=== PATIENT | female | born 1945 | race Caucasian/White ===

== ENCOUNTER → 2018-06-06 13:35 | Outpatient (CLI) | payer MEDICARE, OTHER, SELFPAY | PROVIDERS: Family Provider Physician Assistant; PCP Physician Assistant; Visit Provider Nurse Practitioner Acute Care | DX: G47.33 Obstructive sleep apnea (adult) (pediatric) (principal) | CPT/HCPCS: 98960; G0463 ==

== ENCOUNTER → 2018-07-04 10:05 | Outpatient (CLI) | payer MEDICARE, OTHER, SELFPAY ==
--- NOTE | 2018-07-04 10:17 | BI_ITS ---
MAMMOGRAPHY - BILATERAL SCREENING REASON FOR EXAM: Female, 73 years old. Routine annual screening examination. PERTINENT HISTORY: NO FAM HX RT EXC BX 40+ YRS AGO LT LATERAL PAIN 2 MONTHS AGO BUT GONE NOW TECHNIQUE: Digital bilateral breast kishore (3D mammographic acquisition) in the CC and MLO projections. 2-D mediolateral oblique (MLO) and craniocaudad (CC) views of both breasts were obtained. CAD: Full Field Digital Mammography with Computer Added Detection was performed. COMPARISON: Jul 02 2017 3:19pm . Jun 23 2016 1:11pm FINDINGS: Breast Composition: The breasts are heterogeneously dense, which may obscure small masses. There are no dominant masses or suspicious calcifications. No other significant abnormalities are identified. BI/SCREENING MAMM (CAD), BILAT IMPRESSION: Stable bilateral screening mammogram. Yearly follow-up mammogram recommended. (A) ASSESSMENT CATEGORY: BIRADS Category 2: Benign. A letter regarding these results will be sent to the patient by the facility within 30 days. Approximately 10% of breast cancers are not detected by mammography. A normal mammogram should not delay biopsy of a clinically suspicious abnormality. [id number] Electronically Signed: Judie German MD at 16:41 EDT Tel , Service support ,
== END ==
PROVIDERS: Family Provider Physician Assistant; PCP Physician Assistant; Visit Provider Physician Assistant
DX: Z12.31 Encounter for screening mammogram for malignant neoplasm of breast (principal)
CPT/HCPCS: 77063; 77067

== ENCOUNTER → 2019-03-17 14:28 | Outpatient (CLI) | payer MEDICARE, OTHER, SELFPAY ==
[2019-03-11 14:09] VITALS: BMI 26.4
--- NOTE | 2019-03-17 14:31 | US_ITS ---
STUDY: ULTRASOUND TRANSVAGINAL CLINICAL: Female, 73 years old. Thickened endometrium on CT TECHNIQUE: Transvaginal COMPARISON: None. FINDINGS: The uterus is slightly atrophic and measures 5.9 x 4.0 x 2.7 cm with an endometrial stripe thickness of 6 to 7 mm. This is slightly prominent for a postmenopausal patient. The ovaries are not visualized. US/Pelvic (Non ) IMPRESSION: A slightly atrophic uterus with endometrial stripe thickness of 6 to 7 mm. The upper limits of normal for a postmenopausal patient is 5 mm Electronically Signed: Declan Cr MD at 7:15 EDT Tel , Service support ,
--- NOTE | 2019-03-17 14:31 | US_ITS ---
STUDY: ULTRASOUND TRANSVAGINAL CLINICAL: Female, 73 years old. Thickened endometrium on CT TECHNIQUE: Transvaginal COMPARISON: None. FINDINGS: The uterus is slightly atrophic and measures 5.9 x 4.0 x 2.7 cm with an endometrial stripe thickness of 6 to 7 mm. This is slightly prominent for a postmenopausal patient. The ovaries are not visualized. US/Transvaginal Non- IMPRESSION: A slightly atrophic uterus with endometrial stripe thickness of 6 to 7 mm. The upper limits of normal for a postmenopausal patient is 5 mm Electronically Signed: Declan Cr MD at 7:15 EDT Tel , Service support ,
== END ==
PROVIDERS: Family Provider Physician Assistant; PCP Physician Assistant; Referring Provider Nurse Practitioner Women's Health; Visit Provider Nurse Practitioner Women's Health
DX: R93.89 Abnormal findings on diagnostic imaging of other specified body structures (principal)
CPT/HCPCS: 76830; 76856

== ENCOUNTER → 2019-03-28 16:41 | Outpatient (CLI) | payer MEDICARE, OTHER, SELFPAY ==
--- NOTE | 2019-03-28 | EMB_PTH ---
PATIENT: [facility]YAN [facility]ILIP [facility] U[facility][id number] AGE/SX: 80/F ROOM: RE03/28/[address]: JESSICA Ann : 1945 BED: DIS: SPEC #: [id number] RECD: 03/28/19 16:34 STATUS: CLAY MARAH #: [id number] ELSIE: 03/28/19 00:[address]: Chula Guerrero NP DEPT: SURGICAL PATHOLOGY RECD BY: Sonny Patel ENTERED: 03/31/19 10:54 SP TYPE: ENDOM BX/C BOZENA DR: NATHALIE Weathers Tissues: Endometrium, NOS Procedures: Surgery Specimen Level IV HEADER OPERATION: Endometrial biopsy PRE-OP DIAGNOSIS: Thickened endometrium TISSUE SUBMITTED: Endometrial biopsy MICROSCOPIC DIAGNOSIS Endometrial biopsy: Strip of benign endometrial epithelium consistent with atrophic endometrium. A polypoid fragment of tissue consistent with mixed benign endometrial and endocervical polyp. Fragments of mucoid tissue. SJ:deborah 04/01/19 COMMENT Correlation with clinical findings and appropriate follow up are necessary. MICROSCOPIC DESCRIPTION Slides are reviewed. GROSS DESCRIPTION Received is one container labeled with the patient's name and not further designated. The specimen consists of multiple irregular fragments of antoine-white soft tissue that in aggregate measure 1.5 x 0.5 x 0.1 cm. The specimen is totally submitted in one cassette. / ALL:deborah 03/31/19 TC:5 CPT: 78349
[2019-03-28 13:42] VITALS: BMI 26.0
== END ==
PROVIDERS: Family Provider Physician Assistant; PCP Physician Assistant; Referring Provider Nurse Practitioner Women's Health; Visit Provider Nurse Practitioner Women's Health
DX: R93.89 Abnormal findings on diagnostic imaging of other specified body structures (principal); N84.1 Polyp of cervix uteri
CPT/HCPCS: 88305

== ENCOUNTER → 2019-05-19 15:19 | Outpatient (CLI) | payer MEDICARE, OTHER, SELFPAY ==
[2019-05-19 13:56] VITALS: BMI 26.0
== END ==
PROVIDERS: Family Provider Physician Assistant; PCP Physician Assistant; Referring Provider Obstetrics & Gynecology; Visit Provider Obstetrics & Gynecology
DX: R30.0 Dysuria (principal)
CPT/HCPCS: 87086

== ENCOUNTER 2019-05-29 10:02 | Day surgery (SDC) | payer MEDICARE, OTHER, SELFPAY ==
[2019-03-28 13:42] VITALS: BMI 26.0
[2019-05-19 13:56] VITALS: BMI 26.0
--- NOTE | 2019-05-28 22:10 | HP.PCM_ITS ---
- Problem List (1) Endometrial polyp Status: Acute Comment: d and c hysteroscopy (2) Thickened endometrium Status: Acute (3) Coccygodynia Status: Chronic (4) GERD (gastroesophageal reflux disease) Status: Chronic (5) Hepatic steatosis Status: Chronic (6) Hyperlipidemia Status: Chronic (7) IBS (irritable bowel syndrome) Status: Chronic (8) MILLICENT (obstructive sleep apnea) Status: Chronic (9) Osteoporosis Status: Chronic (10) Snoring Status: Chronic (11) History of carpal tunnel surgery Status: Resolved (12) History of cataract surgery Status: Resolved (13) History of cholecystectomy Status: Resolved History and Physical Date of Admission: 05/29/19 Intake Vital Signs 05/19/19 Body Mass Index (BMI) 26.0 05/19/19 Height 5 ft 3 in 05/19/19 Weight: 150 lb 05/19/19 Body Mass Index (BMI) 26.5 05/19/19 Blood Pressure 160/82 H Intake Visit Reasons: preop D&C Chief Complaint: pre op D&C 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 Is patient in pain?: No Allergies atorvastatin [From Lipitor] Allergy (Severe, Verified 05/19/19 13:55) Unknown bacitracin [From Neosporin ([id number])] Allergy (Severe, Verified 05/19/19 13:55) Unknown neomycin [From Neosporin (qwp-pet-xxntz)] Allergy (Severe, Verified 05/19/19 13:55) Unknown polymyxin B [From Neosporin (xxr-jzb-huwmq)] Allergy (Severe, Verified 05/19/19 13:55) Unknown clobetasol Allergy (Intermediate, Verified 05/19/19 13:55) Unknown metoclopramide Allergy (Intermediate, Verified 05/19/19 13:55) Unknown mupirocin Allergy (Intermediate, Verified 05/19/19 13:55) Unknown nystatin Allergy (Intermediate, Verified 05/19/19 13:55) unknown Sulfa (Sulfonamide Antibiotics) Allergy (Intermediate, Verified 05/19/19 13:55) Unknown tramadol Allergy (Intermediate, Verified 05/19/19 13:55) Unknown codine Allergy (Intermediate, Uncoded 05/19/19 13:55) Unknown Medications L.acidophilus-B.lactis-B.longum 460 mg (7.5-6-1.5 bill. cell) capsule cap PO 05/02/18 [History Confirmed 05/19/19] calcium carbonate 600 mg(1,500 mg)-vitamin D3 800 unit chewable tablet 1 tab PO QDAY tab 05/02/18 [History Confirmed 05/19/19] fluticasone propionate 50 mcg/actuation nasal spray,suspension 2 spray INTRANASAL QDAY PRN 05/02/18 [History Confirmed 05/19/19] lorazepam 0.5 mg tablet 0.5 mg PO Q6H PRN tab 05/02/18 [History Confirmed 05/19/19] misoprostol 200 mcg tablet 200 mcg PO ONCE tab 05/02/18 [History Confirmed 05/19/19] peg 400-propylene glycol 0.4 %-0.3 % eye drops 2 drp OPHTHALMIC BID ml 05/02/18 [History Confirmed 05/19/19] trazodone 50 mg tablet 75 mg PO QDAY tab 05/02/18 [History Confirmed 05/19/19] cholecalciferol (vitamin D3) 1,000 unit capsule 2,000 unit PO DAILY cap 07/04/18 [History Confirmed 05/19/19] diclofenac potassium 50 mg tablet 75 mg PO QDAY tab 07/04/18 [History Confirmed 05/19/19] hemnmqus-dka-jwtsh acid 0.4 mg-lycopene 300 mcg-lutein 250 mcg tablet 1 tab PO DAILY 07/04/18 [History Confirmed 05/19/19] omega-3 fatty acids 1,250 mg capsule 1,250 mg PO DAILY 07/04/18 [History Confirmed 05/19/19] omeprazole 40 mg capsule,delayed release 20 mg PO QDAY cap 07/04/18 [History Confirmed 05/19/19] red yeast rice 600 mg capsule 2,400 mg PO QDAY cap 07/04/18 [History Confirmed 05/19/19] sertraline 25 mg tablet 25 mg PO DAILY 07/04/18 [History Confirmed 05/19/19] vitamin E 200 unit capsule 600 unit PO QDAY cap 07/04/18 [History Confirmed 05/19/19] ascorbate calcium (vitamin C) 500 mg tablet 500 mg PO DAILY 03/11/19 [History Confirmed 05/19/19] potassium gluconate 595 mg (99 mg) tablet 595 mg PO DAILY tab 03/11/19 [History Confirmed 05/19/19] Is last menstrual period known: No Post menopausal: Yes Patient : No : No PFSH Medical History GERD (gastroesophageal reflux disease) (Chronic) Snoring (Chronic) Coccygodynia (Chronic) Hepatic steatosis (Chronic) Osteoporosis (Chronic) IBS (irritable bowel syndrome) (Chronic) Hyperlipidemia (Chronic) MILLICENT (obstructive sleep apnea) (Chronic) Surgical History History of cataract surgery (Resolved) History of carpal tunnel surgery (Resolved) History of cholecystectomy (Resolved) Social History (Updated 05/19/19 @ 14:45 by Maria Luisa Erickson MD) Smoking Status: Never smoker second hand exposure: No alcohol intake: never substance use type: does not use caffeine: Yes what type of physical activity do you participate in: other details: decompression therapy and PT frequency: daily seatbelt use: always do you feel safe at home: Yes additional social history: - [employer] retired Patient is retired HPI preop D&C: Details: RYAN PHILIP is a 74 year old who presents for preop evaluation. she has some dysuria and lower pelvic discomfort. she has a thickened endometrium and polyp was seen on biopsy. Female Reproductive History Menopausal Symptoms: No night sweats Pregancy History 3 Elective abortions Hx Para 2 Spontaneous abortions Hx # Term Pregnancies Ectopic pregnancies Hx # Pregnancies Multiple births 1 # of living children 2 Past Pregnancies Del. Date Name GA/Weeks Outcome Route Bth Weight Infant Gen Labor Lgth Anesthesia Del [facility] Provider FOB Unknown José Antonio and Jam-1968 Unknown Sushil-1969 Unknown Paco-1972 Delivery Date: On 03/11/19 @ 14:09 Jen Rapp Premature- Delivery Date: No notes to display Delivery Date: No notes to display ROS Const Constitutional: Denies fatigue, night sweats, weight gain or weight loss ENT ENT: Reports system reviewed and no additional complaints, except as docu Cardio Card: Denies chest pain Resp Resp: Denies cough or dyspnea GI GI: Reports as per HPI; denies abdominal pain, constipation, nausea or vomiting : Reports urinary frequency and urinary incontinence Musc Musc: Denies joint pain, back pain or muscle weakness Skin Skin/Breast: Denies hair loss, change in hair, dry skin, breast lump, breast pain or breast skin changes Neuro Neuro: Reports system reviewed and no additional complaints, except as docu Psych Psych: Reports system reviewed and no additional complaints, except as docu Endo Endo: Denies cold intolerance, excessive sweating, heat intolerance or increased thirst Aston/Lymph Hematologic/Lymphatic: Denies easy bleeding, Denies easy bruising, Denies enlarged lymph nodes Exam Const General: cooperative, healthy appearing, comfortable, no acute distress, well developed Orientation: alert [facility] Head: normal to inspection, normocephalic Ears: hearing grossly normal bilaterally, external ears normal Nose: external nose normal, nares normal Face and sinus: normal facial exam Neck Neck: normal visual inspection, no lymphadenopathy Thyroid: thyroid normal Chest Chest palpation & inspection: normal inspection of the chest Resp Effort & Inspection: normal respiratory effort Auscultation: clear to auscultation bilaterally Cardio Rate: regular rate Rhythm: regular rhythm Heart Sounds: S1 normal, S2 normal GI Inspection: normal to inspection, non-distended Palpation: soft, no hepatosplenomegaly General: bladder normal to palpation External Female Exam: normal external appearance, normal appearance of the urethra Urethra: normal appearance of the urethra, normal palpation, no discharge Speculum Exam - Vagina: normal appearance of the vagina, normal vaginal discharge Speculum Exam - Cervix: normal appearance of the cervix, nontender Bimanual Exam- Vagina & Uterus: normal bimanual exam, uterine size normal, bladder normal to palpation, uterine shape normal, No cervical tenderness, uterine mobility normal, uterine consistency normal, normal cervical palpation, uterus non-tender Bimanual Exam- Adnexa, other: normal adnexae, adnexae mobile, no adnexal masses, pelvic support normal Pelvic Support: normal Musc Other: gross motor intact no deficits, full bilateral strength Skin General: no rashes or lesions noted Neuro General: alert, awake, moves all extremities, no focal motor deficits Motor: muscle tone normal throughout Extrem General: normal to inspection, no pedal edema Psych Appearance: grossly normal Mental Status: mental status grossly normal Affect: normal affect Speech and Movement: speech and movement normal Assessment & Plan Problems 1. Thickened endometrium R93.89 2. Endometrial polyp N84.0 d and c hysteroscopy Plan discussed surgical risks including risks of anesthesia, infection, bleeding, injury to bowel, bladder or blood vessels, and patient wishes to proceed with surgery. Coding Level of Care Code No Charge Diagnoses Thickened endometrium R93.89 Endometrial polyp N84.0
[2019-05-29] VITALS (7 sets, daily range): BP systolic 120–150; BP diastolic 69–89; PULSE 68–80; RESP 16; TEMP 36.2–36.6; O2SAT 95–98; BMI 26.6
[2019-05-29 10:33] LABS: Hematocrit 42.6 % (37-47); Hemoglobin 13.9 g/dL (12.0-15.0); Mean Corp Hgb Conc 32.6 g/dL (32-36); Mean Corpuscular Hgb 31.4 pg (27.0-32.0); Mean Corpuscular Volume 96.4 fL (81-99); Mean Platelet Vol. 10.9 fl (6.2-12.0); Platelet Count 257 K/mm3 (150-450); RBC Distribution Width CV 12.5 % (11.6-14.6); RBC Distribution Width SD 44.4 fl (35.1-43.9); Red Blood Count 4.42 M/mm3 (4.2-5.4); White Blood Count 7.3 K/mm3 (4.4-11.0)
[2019-05-29 10:46] LABS: Anion Gap 5 (5-15); BUN 22 mg/dL (7-18); BUN/Creat Ratio 26.1 RATIO (10-20); Calcium,Total 8.9 mg/dL (8.5-10.1); Chloride 106 mmol/L (98-107); Creatinine, Serum 0.84 mg/dL (0.55-1.02); EST Glomerular Filtration Rate 70 mL/min (>60); Est Glom Filt Rate - Afr Amer 85 mL/min (>60); Glucose 89 mg/dL (74-106); Potassium 3.9 mmol/L (3.5-5.1); Sodium Level 141 mmol/L (136-145)
--- NOTE | 2019-05-29 12:00 | EMB_PTH ---
PATIENT: RYAN PHILIP LOC: [facility] [place] U#:[id number] AGE/SX: 74/F ROOM: RE05/29/[address]: Dr. Maria Luisa Erickson MD : 1945 BED: DIS: 05/29/2019 SPEC #: [id number] RECD: 05/29/19 12:00 STATUS: CLAY MARAH #: [id number] ELSIE: 05/29/19 12:[address]: Maria Luisa Erickson DEPT: SURGICAL PATHOLOGY RECD BY: Fernando Gandhi ENTERED: 05/30/19 10:05 SP TYPE: ENDOM BX/C OT DR: NATHALIE Weathers Tissues: Endometrium, NOS Procedures: Surgery Specimen Level IV HEADER OPERATION: Hysteroscopy, D & C PRE-OP DIAGNOSIS: Thickened endometrium, endometrial polyp TISSUE SUBMITTED: Endometrial curettings MICROSCOPIC DIAGNOSIS Endometrial curettings: Strips of benign endometrial epithelium and superficial fragments of benign endometrial tissue, consistent with atrophic endometrium. Fragments of benign ectocervical epithelium. See comment. ALL:deborah 06/03/19 COMMENT Please make reference to previous specimen ([id number]) endometrial biopsy with diagnosis of strips of benign endometrial epithelium, consistent with atrophic endometrium and a polypoid fragment of tissue consistent with mixed benign endometrial and endocervical polyp. MICROSCOPIC DESCRIPTION Slides are reviewed. GROSS DESCRIPTION Received in fixative is one container labeled with the patient's name and designated endometrial curettings. The specimen consists of minute fragments of tissue totally submitted for cell block preparation. / ALL:deborah 05/30/19 TC:4 CPT: [id number]
--- NOTE | 2019-05-29 15:31 | PCM.OPRPT ---
Problem List (1) Endometrial polyp Status: Acute Comment: d and c hysteroscopy (2) Thickened endometrium Status: Acute (3) Coccygodynia Status: Chronic (4) GERD (gastroesophageal reflux disease) Status: Chronic (5) Hepatic steatosis Status: Chronic (6) Hyperlipidemia Status: Chronic (7) IBS (irritable bowel syndrome) Status: Chronic (8) MILLICENT (obstructive sleep apnea) Status: Chronic (9) Osteoporosis Status: Chronic (10) Snoring Status: Chronic (11) History of carpal tunnel surgery Status: Resolved (12) History of cataract surgery Status: Resolved (13) History of cholecystectomy Status: Resolved Report of Operation Date of Procedure: 05/29/19 Pre-Operative Diagnosis: Postmenopausal bleeding Post-Operative Diagnosis: Same plus endometrial atrophy Surgery/Procedure Performed:: D&C hysteroscopy endometrial atrophy Description of Surgical Findings:: Atrophic lining Type of Anesthesia:: MAC Special Medications: None Specimen's removed: Endometrial curettings Drains: None Estimated Blood Loss (mL): 10 cc Fluids Replaced: Crystalloid Description of Procedure: Patient was prepped and draped in a normal sterile fashion under MAC anesthesia. A weighted speculum was placed in the vagina and the anterior lip of the cervix was grasped with a single-tooth tenaculum. A paracervical block was placed with 1% lidocaine. Cervix was progressively dilated to allow passage of a 5 mm hysteroscope. The lining was fully visualized and noted to have an atrophic lining with no gross abnormalities. Uterine sounded to 6 cm. Curettage was performed and minimal amount of tissue was removed due to significant atrophy, sent to pathology. All instruments were removed from the vagina and excellent hemostasis was noted. Patient was awoken and taken to recovery in stable condition. Grafts/Implants Used: none - Complications none
--- NOTE | 2019-05-29 15:33 | DCINST_ITS ---
Discharge Diet: No Restrictions Discharge Activity: Return to Normal Activity, May Shower, May Take a Tub Bath Allergies/Adverse Reactions: Allergies atorvastatin [From Lipitor] Allergy (Severe, Verified 05/22/19 10:56) Unknown bacitracin [From Neosporin (ukd-ato-fnduy)] Allergy (Severe, Verified 05/22/19 10:56) Unknown neomycin [From Neosporin (wag-fcn-nuzyu)] Allergy (Severe, Verified 05/22/19 10:56) Unknown polymyxin B [From Neosporin (svf-shg-nlrlm)] Allergy (Severe, Verified 05/22/19 10:56) Unknown clobetasol Allergy (Intermediate, Verified 05/22/19 10:56) Unknown metoclopramide Allergy (Intermediate, Verified 05/22/19 10:56) Unknown mupirocin Allergy (Intermediate, Verified 05/22/19 10:56) Unknown nystatin Allergy (Intermediate, Verified 05/22/19 10:56) unknown Sulfa (Sulfonamide Antibiotics) Allergy (Intermediate, Verified 05/22/19 10:56) Unknown tramadol Allergy (Intermediate, Verified 05/22/19 10:56) Unknown celecoxib [From Celebrex] Allergy (Verified 05/22/19 10:58) Unknown codeine Allergy (Verified 05/22/19 10:58) Unknown amoxicillin Adverse Reaction (Verified 05/22/19 10:58) Diarrhea Medications to take at Discharge L.acidophilus-B.lactis-B.longum 460 mg (7.5-6-1.5 bill. cell) capsule 1 cap PO DAILY 05/02/18 calcium carbonate 600 mg(1,500 mg)-vitamin D3 800 unit chewable tablet 1 tab PO QDAY tab 05/02/18 fluticasone propionate 50 mcg/actuation nasal spray,suspension 2 spray INTRANASAL BID 05/02/18 lorazepam 0.5 mg tablet 0.5 mg PO Q6H PRN tab 05/02/18 misoprostol 200 mcg tablet 200 mcg PO ONCE tab 05/02/18 peg 400-propylene glycol 0.4 %-0.3 % eye drops 2 drp OPHTHALMIC BID ml 05/02/18 trazodone 50 mg tablet 75 mg PO QDAY tab 05/02/18 cholecalciferol (vitamin D3) 1,000 unit capsule 2,000 unit PO DAILY cap 07/04/18 diclofenac potassium 50 mg tablet 75 mg PO QDAY tab 07/04/18 yrdruydb-rjx-dmsks acid 0.4 mg-lycopene 300 mcg-lutein 250 mcg tablet 1 tab PO DAILY 07/04/18 omega-3 fatty acids 1,250 mg capsule 1,250 mg PO DAILY 07/04/18 omeprazole 40 mg capsule,delayed release 20 mg PO QDAY cap 07/04/18 red yeast rice 600 mg capsule 2,400 mg PO QDAY cap 07/04/18 sertraline 25 mg tablet 25 mg PO DAILY 07/04/18 vitamin E 200 unit capsule 600 unit PO QDAY cap 07/04/18 ascorbate calcium (vitamin C) 500 mg tablet 500 mg PO DAILY 03/11/19 potassium gluconate 595 mg (99 mg) tablet 595 mg PO DAILY tab 03/11/19 Primary Care Physician: Meri Pope PA [Primary Care Provider] - Test Results: Test results from this visit will be discussed in further detail at your follow- up appointment, if applicable. Please Follow Up With: Maria Luisa Erickson MD - [phone]
[2019-05-29] MEDS: Lactated Ringers 1,000 ML 125 ML IV (15:50)
== END 2019-05-29 17:15 | disposition home or self-care (01) ==
LOC: SDC 10:04 → AC 10:04
PROVIDERS: Family Provider Physician Assistant; PCP Physician Assistant; Referring Provider Obstetrics & Gynecology; Visit Provider Obstetrics & Gynecology
PROC: 0UB98ZZ Excision of Uterus, Via Natural or Artificial Opening Endoscopic (ICD-10-PCS; CPT 58558; principal; 2019-05-29 11:45)
DX: N95.0 Postmenopausal bleeding (principal); R93.89 Abnormal findings on diagnostic imaging of other specified body structures; E78.5 Hyperlipidemia, unspecified; G47.33 Obstructive sleep apnea (adult) (pediatric); K21.9 Gastro-esophageal reflux disease without esophagitis; K58.9 Irritable bowel syndrome, unspecified; M81.0 Age-related osteoporosis without current pathological fracture; N84.0 Polyp of corpus uteri; Z88.1 Allergy status to other antibiotic agents; Z88.2 Allergy status to sulfonamides; Z88.8 Allergy status to other drugs, medicaments and biological substances; Z90.49 Acquired absence of other specified parts of digestive tract; Z98.49 Cataract extraction status, unspecified eye; M53.3 Sacrococcygeal disorders, not elsewhere classified; K76.0 Fatty (change of) liver, not elsewhere classified
CPT/HCPCS: 58558; 36415; 80048; 85027; 86850; 86870; 86900; 86901; 86905; 88305; J7120; J2405

== ENCOUNTER → 2019-07-07 09:30 | Outpatient (CLI) | payer MEDICARE, OTHER, SELFPAY ==
[2019-05-29 10:42] VITALS: BMI 26.6
[2019-07-03 09:57] VITALS: BMI 26.1
--- NOTE | 2019-07-07 09:34 | BI_ITS ---
MAMMOGRAPHY - BILATERAL SCREENING 3-D TOMOSYNTHESIS REASON FOR EXAM: Female, 74 years old. Screening PERTINENT HISTORY: No significant family history. BILATERAL DIGITAL MAMMOGRAM WITH TOMOSYNTHESIS: Mediolateraloblique and craniocaudal views demonstrate no evidence of dominant parenchymal masses. No cluster of microcalcifications or architectural distortion is seen. No evidence of skin thickening is identified There has been no significant change since 07/04/2018. Breast Density: The breast tissue is heterogeneously dense, which may obscure small masses. CAD was used to assist in final assessment. IMPRESSION: NORMAL MAMMOGRAM BILATERALLY. FINAL ASSESSMENT: BIRAD 1 (NEGATIVE) YEARLY MAMMOGRAM RECOMMENDED Approximately 10% of breast cancers are not detected by mammography. A normal mammogram should not delay biopsy of a clinically suspicious abnormality. Electronically Signed: Jose Luis Guerrero, at 17:18 EDT Tel , Service support , BI/SCREEN MAMM (CAD) W/TAY GARCIA
== END ==
PROVIDERS: Family Provider Physician Assistant; PCP Physician Assistant; Referring Provider Physician Assistant; Visit Provider Physician Assistant
DX: Z12.31 Encounter for screening mammogram for malignant neoplasm of breast (principal)
CPT/HCPCS: 77063; 77067

== ENCOUNTER → 2020-07-08 12:25 | Outpatient (CLI) | payer MEDICARE, OTHER, SELFPAY ==
[2019-07-03 09:57] VITALS: BMI 26.1
--- NOTE | 2020-07-08 12:27 | BI_ITS ---
MAMMOGRAPHY - BILATERAL SCREENING REASON FOR EXAM: Female, 75 years old. Routine annual screening examination. PERTINENT HISTORY: NO FAM HX - RT EXC BX 40+ YRS AGO - TECHNIQUE: Digital bilateral breast tay (3D mammographic acquisition) in the CC and MLO projections. 2-D mediolateral oblique (MLO) and craniocaudad (CC) views of both breasts were obtained. CAD: Full Field Digital Mammography with Computer Added Detection was performed. COMPARISON: 07/07/2019 and 07/04/2018. FINDINGS: Breast Composition: There are scattered areas of fibroglandular density. There are no dominant masses or suspicious calcifications. No other significant abnormalities are identified. BI/SCREEN MAMM (CAD) W/TAY BILAT IMPRESSION: Stable bilateral screening mammogram. Yearly follow-up mammogram recommended. (A) ASSESSMENT CATEGORY: BIRADS Category 2: Benign. A letter regarding these results will be sent to the patient by the facility within 30 days. Approximately 10% of breast cancers are not detected by mammography. A normal mammogram should not delay biopsy of a clinically suspicious abnormality. [id number] Electronically Signed: Judie German, at 15:01 EDT Tel , Service support ,
== END ==
PROVIDERS: PCP Physician Assistant; Referring Provider Physician Assistant; Visit Provider Physician Assistant
DX: Z12.31 Encounter for screening mammogram for malignant neoplasm of breast (principal)
CPT/HCPCS: 77063; 77067

== ENCOUNTER → 2020-12-14 10:00 | Outpatient (CLI) | payer MEDICARE, OTHER, SELFPAY | PROVIDERS: PCP Physician Assistant; Referring Provider Otolaryngology Otolaryngology/Facial Plastic Surgery; Visit Provider Otolaryngology Otolaryngology/Facial Plastic Surgery | DX: J01.90 Acute sinusitis, unspecified (principal) | CPT/HCPCS: 87070; 87205 ==

== ENCOUNTER → 2021-02-03 12:29 | Outpatient (CLI) | payer MEDICARE, OTHER, SELFPAY ==
[2021-02-03 11:11] VITALS: BMI 25.3
[2021-02-03 13:32] LABS: Rheumatoid Factor < 10.0 IU/mL (<15)
[2021-02-04 20:18] LABS: ANTINUCLEAR ANTIBODIES DIRECT Negative (Negative)
[2021-02-06 03:06] LABS: Cytoplasmic Ab (C-ANCA) <1:20 titer (Neg:<1:20)
[2021-02-06 09:45] LABS: CCP IgG Antibodies 8 units (0-19); Perinuclear Ab (P-ANCA) <1:20 titer (Neg:<1:20)
== END ==
PROVIDERS: PCP Physician Assistant; Referring Provider Internal Medicine Critical Care Medicine; Visit Provider Internal Medicine Critical Care Medicine
DX: I27.20 Pulmonary hypertension, unspecified (principal)
CPT/HCPCS: 36415; 86038; 86200; 86225; 86235; 86256; 86431

== ENCOUNTER → 2021-02-08 08:53 | Outpatient (CLI) | payer MEDICARE, OTHER, SELFPAY ==
[2021-02-03 11:11] VITALS: BMI 25.3
--- NOTE | 2021-02-08 08:57 | NM_ITS ---
CLINICAL: 75-year-old female with reported history of pulmonary hypertension. VENTILATION-PERFUSION LUNG SCINTIGRAPHY COMPARISON: None available FINDINGS: The patient was administered 48.7 mCi 99m Tc DTPA aerosol. The aerosol ventilation study demonstrates heterogeneous ventilation identified in the right and left lung lujan. Central clumping is identified in the bilateral hemithorax. Following the intravenous administration of 5.2 mCi of 99m Tc MAA, the pulmonary perfusion study reveals nonuniform perfusion visualized in the right and left lung lujan correlating with the previously described ventilation pattern. A stripe sign is defined in the right midlower lateral lung. There are no moderate subsegmental or large segmental ventilation-perfusion mismatches identified. NM/Lung Scan Vent/Perf IMPRESSION: 1. VERY LOW PROBABILITY FOR PULMONARY EMBOLUS (<10%) 99m Tc DTPA aerosol ventilation / 99m Tc MAA pulmonary perfusion imaging examination, according to PIOPED II interpretive criteria with regard given to the presence of > 2 ventilation-perfusion matches and right lung perfusion stripe sign. (Sotsman et al, Radiology 246: 941, 2008 Sotsneelam et al, J Nucl Med 49: 1741, 2008). 2. Central clumping of the aerosol may be secondary to obstructive airway mechanics and or clinical tachypnea. Electronically Signed: Michael Jones DO at 22:15 EDT Tel , Service support ,
== END ==
PROVIDERS: PCP Physician Assistant; Referring Provider Internal Medicine Critical Care Medicine; Visit Provider Internal Medicine Critical Care Medicine
DX: I27.20 Pulmonary hypertension, unspecified (principal)
CPT/HCPCS: 78582; A9540; A9567

== ENCOUNTER → 2021-02-15 14:02 | Outpatient (CLI) | payer MEDICARE, OTHER, SELFPAY ==
[2021-02-03 11:11] VITALS: BMI 25.3
--- NOTE | 2021-02-15 14:00 | PET_ITS ---
EXAMINATION: FDG PET/CT INDICATIONS: A 75-year-old female with reported history of pulmonary nodularity. COMPARISON EXAMINATION: CT of the chest report dated 01/20/21 NON-INDEX LESION SIZE SUV INTERPRETATION Right thoracic perihilum 1.9 Quantitative criteria for viable neoplasm are not fulfilled TECHNIQUE: Following the intravenous administration of 16.58 mCi of F-18 deoxyglucose via the right antecubital fossa, multiplanar image acquisitions of the neck, chest, abdomen and pelvis to level of mid thigh, obtained at one hour post radiopharmaceutical administration contemporaneously interpreted with the current CT of the neck, chest, abdomen and pelvis to level of mid thigh, dated 02/15/[address] of the chest report dated 01/20/21 reveal: SERUM GLUCOSE LEVEL: 89 mg/dl. HEIGHT: 63 inches. WEIGHT: 146 lbs. FINDINGS: 1. There is no evidence of abnormal increased glucose metabolism within the context of the right basilar hemithorax pulmonary parenchyma-right lower lobe to correlate with densities defined on CT of the chest dated 02/15/21 in the right lower lateral and right lower posterior lung zones. 2. Mild increased FDG distribution is focally apparent in the in the right thoracic perihilum generating a calculated maximal standard uptake value of 1.9. 3. Normal physiologic distribution of the radiopharmaceutical is apparent in the hepatic (3.2) and splenic parenchyma, both renal units, bladder and visualized intestinal tract. The visualized portion of the cerebral cortical-subcortical structures demonstrate symmetric and preserved glucose metabolism. Diffuse radiopharmaceutical concentration is noted in all four quadrants of the abdomen and pelvis. Pertinent CT findings are as follows: CHEST: Linear densities defined in the bilateral apical lung lujan demonstrate no evidence of increased tracer uptake. A calcified nodule manifest in the right lower lung field is non-glucose avid. There is atherosclerotic calcification defined in the thoracic aorta without evidence of dilatation-aneurysm formation. Coronary arterial calcification is observed. Bilateral axillary soft tissue densities with fatty hilus are ametabolic. ABDOMEN AND PELVIS: The gallbladder is surgically absent. There is atherosclerotic calcification defined in the abdominal aorta without evidence of dilatation-aneurysm formation. Pelvic arterial calcification is observed. Right-left inguinal soft tissue densities with fatty hilus are ametabolic. Calcifications are discerned in the bilateral lower hemipelvis in proximity to the adnexal regions without evidence of increased tracer uptake. SKELETAL: Degenerative changes are noted in the cervical, thoracic and lumbar spine without evidence of increased radiopharmaceutical concentration. PET/PET/CT Tumor Base -Thigh Init IMPRESSION: 1. NEGATIVE EXAMINATION. There is no quantitative scintigraphic evidence of abnormal increased glucose metabolism within the context of the right lower lateral, right lower posterior lung lujan to correlate with structural changes noted on review of CT of the thorax dated 02/15/21. 2. Anatomic stability may be ensured in the nonglucose avid right lower lung parenchymal densities with repeat CT of the thorax in 3-6 months. (Alberto, Seminars in Thoracic and Cardiovascular Surgery 14:292, 2002). 3. Facilitated uptake noted in the right thoracic perihilum does not fulfill quantitative criteria for viable neoplasm. (Shania wright al, Journal of Clinical Oncology 16:2142, 1998). Electronic Signature Michael Jones D.O. Accurate Quantification of SUVs for this report are calculated using the exclusive [employer]? Technology.??Exclusive [place]. Patent [employer]? Technology ([place].S. Patent No. [id number] [id number] 983). Electronically Signed: Michael Jones DO at 10:26 EDT Tel , Service support ,
== END ==
PROVIDERS: PCP Physician Assistant; Referring Provider Internal Medicine Critical Care Medicine; Visit Provider Internal Medicine Critical Care Medicine
DX: R91.1 Solitary pulmonary nodule (principal)
CPT/HCPCS: 78815; A9552

== ENCOUNTER → 2021-07-11 10:21 | Outpatient (CLI) | payer MEDICARE, OTHER, SELFPAY ==
--- NOTE | 2021-07-11 10:23 | BI_ITS ---
MAMMOGRAPHY - BILATERAL SCREENING REASON FOR EXAM: Female, 76 years old. Routine annual screening examination. PERTINENT HISTORY: Non-contributory. History of remote right excisional breast biopsy. TECHNIQUE: Digital bilateral breast tay (3D mammographic acquisition) in the CC and MLO projections. 2-D mediolateral oblique (MLO) and craniocaudad (CC) views of both breasts were obtained. CAD: Full Field Digital Mammography with Computer Added Detection was performed. COMPARISON: Comparison is made with prior study 07/08/2020 and 07/07/2019 FINDINGS: Breast Composition: There are scattered areas of fibroglandular density. There are no dominant masses or suspicious calcifications. Stable benign-appearing bilateral axillary lymph nodes. No other significant abnormalities are identified. There has been no significant change since the prior study. BI/SCRN MAMM (CAD)W/TAY BILAT IMPRESSION: Stable bilateral screening mammogram. Yearly follow-up mammogram recommended. (A) ASSESSMENT CATEGORY: BIRADS Category 2: Benign. A letter regarding these results will be sent to the patient by the facility within 30 days. Approximately 10% of breast cancers are not detected by mammography. A normal mammogram should not delay biopsy of a clinically suspicious abnormality. [id number] Electronically Signed: Deon Stafford MD at 11:58 EDT , Service support ,
== END ==
PROVIDERS: PCP Physician Assistant; Referring Provider Physician Assistant; Visit Provider Physician Assistant
DX: Z12.31 Encounter for screening mammogram for malignant neoplasm of breast (principal)
CPT/HCPCS: 77063; 77067

== ENCOUNTER → 2021-07-14 14:37 | Outpatient (CLI) | payer MEDICARE, OTHER, SELFPAY ==
[2021-07-14 14:51] LABS: Absolute Lymphocyte Count 2.29 X10^3/uL (0.83-4.51); Absolute Neutrophil Count 6.7 X10^3/uL (2.0-7.7); Basophil# 0.07 X10^3/uL; Basophil% 0.7 % (0-1); Eosinophil# 0.43 X10^3/uL; Eosinophils% 4.2 % (0-5); Hematocrit 45.2 % (37-47); Hemoglobin 14.6 g/dL (12.0-15.0); Lymphocyte # 2.29 X10^3/ul (0.83-4.51); Lymphocyte % 22.2 % (19-41); Mean Corp Hgb Conc 32.3 g/dL (32-36); Mean Corpuscular Hgb 30.5 pg (27.0-32.0); Mean Corpuscular Volume 94.4 fL (81-99); Mean Platelet Vol. 10.9 fl (6.2-12.0); Monocyte# 0.75 X10^3/uL; Monocyte% 7.3 % (0-10); NRBC Flagged by Analyzer 0 % (0-5); Neutrophil # 6.74 X10^3/uL (2.7-7.7); Neutrophil % 65.3 % (47-70); POSITIVE MORPHOLOGY YES; Platelet Count 318 K/mm3 (150-450); RBC Distribution Width CV 12.6 % (11.6-14.6); RBC Distribution Width SD 43.3 fl (35.1-43.9); Red Blood Count 4.79 M/mm3 (4.2-5.4); White Blood Count 10.3 K/mm3 (4.4-11.0)
[2021-07-14 14:52] LABS: Differential Indicated SCAN CRITERIA MET
[2021-07-14 15:06] LABS: D-Dimer Quantitative (DVT/PE) 0.69 FEU/ug/m (0.27-0.49)
[2021-07-14 15:16] LABS: BNP,B-Type NATRIURETIC PEPTIDE 38.6 pg/mL (0-100); Platelet Estimate ADEQUATE (ADEQ)
[2021-07-14 15:17] LABS: Red Cell Morphology NORM C+C NORMAL (NORM C&C)
[2021-07-18 08:51] LABS: ANTINUCLEAR ANTIBODIES DIRECT Negative (Negative)
[2021-07-18 11:07] LABS: Cytoplasmic Ab (C-ANCA) <1:20 titer (Neg:<1:20)
[2021-07-18 15:35] LABS: Perinuclear Ab (P-ANCA) <1:20 titer (Neg:<1:20)
== END ==
PROVIDERS: PCP Physician Assistant; Referring Provider Internal Medicine Critical Care Medicine; Visit Provider Internal Medicine Critical Care Medicine
DX: G47.33 Obstructive sleep apnea (adult) (pediatric) (principal); J96.11 Chronic respiratory failure with hypoxia; R06.00 Dyspnea, unspecified
CPT/HCPCS: 36415; 83880; 85025; 85379; 86038; 86225; 86235; 86256

== ENCOUNTER → 2021-07-19 06:46 | Outpatient (CLI) | payer MEDICARE, OTHER, SELFPAY ==
--- NOTE | 2021-07-22 07:32 | PFT ---
INTRODUCTION: The patient is a 76-year-old female that presents for pulmonary function studies secondary to a diagnosis of COPD. Respiratory therapy reported good patient effort. Bronchodilators were used during testing. INTERPRETATION: Forced expiration spirometry demonstrates the presence of a mild large airways obstructive ventilatory defect. There was no significant response to aerosolized bronchodilators. Spirograms are of good quality and plateau normally. Body plethysmography was performed and reveals lung volumes to be within normal limits. Diffusing capacity by single breath CO is mildly reduced at 67% of predicted. IMPRESSION: Irreversible mild large airways obstructive ventilatory defect with preserved lung volumes and symmetric reduction in diffusing capacity.
== END ==
PROVIDERS: PCP Physician Assistant; Referring Provider Internal Medicine Critical Care Medicine; Visit Provider Internal Medicine Critical Care Medicine
DX: J44.9 Chronic obstructive pulmonary disease, unspecified (principal)
CPT/HCPCS: 94060; 94726; 94729

== ENCOUNTER → 2021-07-29 13:57 | Outpatient (CLI) | payer MEDICARE, OTHER, SELFPAY ==
--- NOTE | 2021-07-29 13:58 | CT_ITS ---
STUDY: CT CHEST WITHOUT CONTRAST REASON FOR EXAM: Female, 76 years old. Follow-up of previously seen lung nodules RADIATION DOSAGE (If Supplied By Facility): CTDIvol = ( 8.99 ) mGy, DLP = ( 325.75 ) mGycm TECHNIQUE: Transaxial imaging was performed without the administration of intravenous contrast material. Individualized dose optimization techniques were used for this CT. COMPARISON: 15 Feb 2021 report, no images available for review, FINDINGS: Lungs are mildly emphysematous. There is a small right pleural effusion and atelectasis. There are multiple geographic groundglass opacities likely related to combination of small airway and vascular disease. Central airways are patent. Mediastinal contents are normal. Coronary arteries are moderately diseased. CT/Chest without Contrast IMPRESSION: 1. Right lower lobe atelectasis, small right effusion. Refer to follow-up imaging for reevaluation of right lower lung parenchyma after resolution of acute illness. Suggested follow-up interval is 3 months. Electronically Signed: Kai Hamilton MD at 17:14 EDT Tel , Service support ,
== END ==
PROVIDERS: PCP Physician Assistant; Referring Provider Nurse Practitioner Acute Care; Visit Provider Nurse Practitioner Acute Care
DX: R91.1 Solitary pulmonary nodule (principal)
CPT/HCPCS: 71250

== ENCOUNTER 2021-08-18 12:18 | Observation (INO) | payer MEDICARE, OTHER, SELFPAY ==
[2021-08-18] VITALS (9 sets, daily range): BP systolic 119–150; BP diastolic 70–84; PULSE 86–110; RESP 16–18; TEMP 36.7–37.4; O2SAT 95–100; BMI 26.2; BMI 26.0
--- NOTE | 2021-08-18 12:34 | EKG12_ITS ---
Test Reason : CP Blood Pressure : / mmHG Vent. Rate : 108 BPM Atrial Rate : 108 BPM P-R Int : 136 ms QRS Dur : 078 ms QT Int : 326 ms P-R-T Axes : 079 083 072 degrees QTc Int : 436 ms Sinus tachycardia Biatrial enlargement Nonspecific ST abnormality Abnormal ECG Confirmed by SHELBY LAGUNA, BUSHRA ([id number]), editor news JACKSON POTTS ([id number]) on 08/19/2021 1:55:10 P M Referred By: CHRISTIAN Confirmed By:GAVIN RYAN MD
--- NOTE | 2021-08-18 12:34 | RAD_ITS ---
STUDY: X-RAY CHEST REASON FOR EXAM: Female, 76 years old. Chest pain TECHNIQUE: Single AP portable view of the chest. COMPARISON: None. FINDINGS: EKG electrodes are seen. There is hyperinflation of the lungs consistent with chronic obstructive lung disease (COPD). There is a 1.3 cm nodule in the lateral aspect of the right lower lobe adjacent to the costophrenic angle. There is no demonstrated pleural abnormality. Normal size heart. Normal mediastinum and federico. Normal visualized pulmonary arteries. There is atherosclerotic calcification of the aortic arch with tortuosity. There are diffuse degenerative changes of the visualized thoracic spine. There is degenerative osteoarthritis of the bilateral shoulders. There is no demonstrated abnormality of the visualized soft tissue structures of the upper abdomen. RAD/Chest 1 View (Portable) IMPRESSION: Hyperinflation. 1.3 cm nodular density in the lateral aspect of the right lower lobe adjacent to the right costophrenic angle. Electronically Signed: Deon Stafford MD at 13:25 EST , Service support ,
--- NOTE | 2021-08-18 12:37 | EDS_ITS ---
HPI History of Present Illness Chief Complaint: Chest Pain Narrative Narrative: Patient presents with chest discomfort that lasted about 2 hours started at 6 AM this morning, she has been asymptomatic for about 4 hours now. No radiation to her arm, she has chronic dyspnea secondary to pulmonary hypertension, she is on 3 L of home O2 however her oxygen and her breathing have not changed. She has no fever chills or any new cough. She has no back pain or tearing sensation. She does not have any pleuritic components. She has no lower extremity edema or calf pain or any DVT or PE risk factors. [facility] Medical History Coccygodynia GERD (gastroesophageal reflux disease) Hepatic steatosis Hyperlipidemia IBS (irritable bowel syndrome) MILLICENT (obstructive sleep apnea) Osteoporosis Snoring Thickened endometrium Home Medications L.acidophilus-B.lactis-B.longum 15 billion cell capsule 1 cap PO DAILY 05/02/18 [History Last Taken Unknown] calcium carbonate 600 mg(1,500 mg)-vitamin D3 800 unit chewable tablet 1 tab PO QDAY tab 05/02/18 [History Last Taken Unknown] lorazepam 0.5 mg tablet 0.5 mg PO Q6H PRN tab 05/02/18 [History Last Taken Unknown] peg 400-propylene glycol 0.4 %-0.3 % eye drops 2 drp OPHTHALMIC BID ml 05/02/18 [History Last Taken Unknown] cholecalciferol (vitamin D3) 25 mcg (1,000 unit) capsule 2,000 unit PO DAILY cap 07/04/18 [History Last Taken Unknown] gevhcyry-jxq-epjax acid 0.4 mg-lycopene 300 mcg-lutein 250 mcg tablet 1 tab PO DAILY 07/04/18 [History Last Taken Unknown] omega-3 fatty acids 1,250 mg capsule 1,250 mg PO DAILY 07/04/18 [History Last Taken Unknown] omeprazole 40 mg capsule,delayed release 20 mg PO QDAY cap 07/04/18 [History Last Taken Unknown] red yeast rice 600 mg capsule 2,400 mg PO QDAY cap 07/04/18 [History Last Taken Unknown] sertraline 25 mg tablet 25 mg PO DAILY 07/04/18 [History Last Taken Unknown] vitamin E 200 unit capsule 600 unit PO QDAY cap 07/04/18 [History Last Taken Unknown] ascorbate calcium (vitamin C) 500 mg tablet 500 mg PO DAILY 03/11/19 [History Last Taken Unknown] blue emu cream TOPICAL 08/04/21 [History Last Taken Unknown] dicyclomine 20 mg tablet 20 mg PO ONCE tab 08/04/21 [History Last Taken Unknown] ground flax seed PO 08/04/21 [History Last Taken Unknown] joint exl chiro blend PO 08/04/21 [History Last Taken Unknown] losartan 25 mg tablet 25 mg PO DAILY 08/04/21 [History Last Taken Unknown] turmeric 400 mg capsule mg PO 08/04/21 [History Last Taken Unknown] vit B complex 100 combo no.2 100 mg tablet,extended release tab PO 08/04/21 [History Last Taken Unknown] zinc 50 mg tablet 50 mg PO DAILY 08/04/21 [History Last Taken Unknown] Allergy/AdvReac Type Severity Reaction Status Date / Time atorvastatin [From Lipitor] Allergy Severe Unknown Verified 08/18/21 12:26 bacitracin Allergy Severe Unknown Verified 08/18/21 12:26 [From Neosporin ([id number])] neomycin Allergy Severe Unknown Verified 08/18/21 12:26 [From Neosporin ([id number])] polymyxin B Allergy Severe Unknown Verified 08/18/21 12:26 [From Neosporin ([id number])] acetaminophen [From Vicodin] Allergy Intermediate Other Verified 08/18/21 12:26 cefdinir Allergy Intermediate Other Verified 08/18/21 12:26 clobetasol Allergy Intermediate Unknown Verified 08/18/21 12:26 escitalopram Allergy Intermediate Constipatio Verified 08/18/21 12:26 n hydrocodone [From Vicodin] Allergy Intermediate Other Verified 08/18/21 12:26 lansoprazole Allergy Intermediate Nausea/Vom/ Verified 08/18/21 12:26 Diarrhea meloxicam Allergy Intermediate Other Verified 08/18/21 12:26 metoclopramide Allergy Intermediate Unknown Verified 08/18/21 12:26 mupirocin Allergy Intermediate Unknown Verified 08/18/21 12:26 naproxen Allergy Intermediate Upset Verified 08/18/21 12:26 Stomach nystatin Allergy Intermediate unknown Verified 08/18/21 12:26 Sulfa (Sulfonamide Allergy Intermediate Unknown Verified 08/18/21 12:26 Antibiotics) topiramate Allergy Intermediate Other Verified 08/18/21 12:26 tramadol Allergy Intermediate Unknown Verified 08/18/21 12:26 trazodone Allergy Intermediate Other Verified 08/18/21 12:26 celecoxib [From Celebrex] Allergy Unknown Verified 08/18/21 12:26 codeine Allergy Unknown Verified 08/18/21 12:26 amoxicillin AdvReac Diarrhea Verified 08/18/21 12:26 Surgical History History of carpal tunnel surgery History of cataract surgery History of cholecystectomy Social History Smoking Status: Never smoker second hand exposure: No alcohol intake: never substance use type: does not use caffeine: Yes what type of physical activity do you participate in: other details: decompression therapy and PT frequency: daily seatbelt use: always do you feel safe at home: Yes additional social history: - [employer] retired Patient is retired ROS ROS ED ROS Narrative Past medical history: Reviewed, significant for pulmonary hypertension, COPD, home oxygen, GERD, hyperlipidemia, MILLICENT, hypertension Medications: Reviewed Social history: Noncontributory Review of systems: All systems negative except as indicated General: No fever Eyes: No visual changes ENT: No upper airway congestion, normal voice Neck: No neck pain Cardiovascular: Chest pain that resolved Respiratory: Chronic respiratory difficulty no new changes Gastrointestinal: No abdominal pain, nausea vomiting or diarrhea Genitourinary: No dysuria Musculoskeletal: Denies myalgias no difficulty with ambulation. No calf pain or edema Skin: No rash Neurological: No memory loss, confusion or any focal weakness Psych: No recent behavioral changes Hematologic: No easy bleeding or easy bruising EXAM Physical Exam Narrative Exam Narrative: Physical exam General: Well nourished, Well developed, No Acute Distress Head: Normocephalic, Atraumatic Eyes: Conjunctiva not pale ENT: Moist mucous membranes Neck: Supple, Nontender, No lymphadenopathy Cardiovascular: Regular rate, Regular rhythm Respiratory: No distress, coarse bilateral breath sounds Abdomen: Soft, Nontender, Nondistended Back: Nontender, Normal Inspection. Negative for: CVA tenderness Extremities: Nontender, No edema Skin: Normal color, No rash Neurological: Alert, Normal Strength, Normal Sensation Psychological: Normal affect Const Vital Signs: 08/18/21 12:19 08/18/21 12:29 08/18/21 12:37 Temperature 98.9 F Temperature Source Temporal Pulse Rate 110 H Respiratory Rate 18 Respiratory Effort Normal Blood Pressure 150/80 H Blood Pressure Mean 103 Pulse Ox 95 Oxygen Delivery Method Room Air Nasal Cannula Oxygen Flow Rate (L/min) 3 Heart Score History: Moderately Suspicious ECG: Nonspecific Repolarization Age: >/= 65 years Risk Factors: >/= 3 Risk Factors or History of CAD Troponin: >1 - <3 Normal Limit Score: 7 MDM MDM MDM Narrative Medical decision making narrative: Patient has subtle EKG changes, troponin is intermediate. Her heart score is a 7. I will admit her. Based on her physical exam, history, EKG and x-rays I do not believe she has thromboembolic disease as the source. Lab Data Labs: Laboratory Results - last 24 hr 08/18/21 08/18/21 12:34 12:34 WBC 13.6 H RBC 5.02 Hgb 15.0 Hct 46.3 MCV 92.2 MCH 29.9 MCHC 32.4 RDW Std Deviation 43.6 RDW Coeff of [place] 13.1 Plt Count 373 MPV 10.8 Immature Gran % (Auto) 0.400 Neut % (Auto) 74.3 H Lymph % (Auto) 15.1 L Lea % (Auto) 8.4 Eos % (Auto) 1.4 Baso % (Auto) 0.4 Absolute Neuts (auto) 10.1 H Absolute Lymphs (auto) 2.06 Nucleated RBC % 0 Sodium 139 Potassium 3.4 L Chloride 105 Carbon Dioxide 27.0 Anion Gap 7 BUN 18 Creatinine 0.86 Estim Creat Clear Calc 45.32 Est GFR (MDRD) Af Amer 82 Est GFR (MDRD) Non-Af 68 BUN/Creatinine Ratio 21.0 H Glucose 98 Calcium 9.0 Magnesium 2.3 Troponin I High Sens 73 H Radiography Chest X-Ray - ED: 1 View Diagnostic Testing: Chest x-ray interpreted by me is unremarkable. EKG Initial EKG: Comments: Sinus rhythm with a rate of 108. Normal CO and QTc intervals. Nonspecific ST changes inferior and laterally. Discharge Plan Triage Chief Complaint: Chest Pain ED Provider: Griffin Rasheed Dx/Rx/DC Orders Clinical Impression: Chest pain Prescriptions: No Action peg 400-propylene glycol [Systane (propylene glycol)] 0.4-0.3 % drops 2 drp OPHTHALMIC BID RF: 0 calcium carbonate 600 mg(1,500 mg)-vitamin D3 800 unit chewable tablet 600 mg (1,500 mg)-800 unit tablet,chewable 1 tab PO QDAY RF: 0 L.acidoph-B.lactis-B.longum [Florajen3] 460 mg (7.5-6- 1.5 bill. cell) capsule 1 cap PO DAILY RF: 0 lorazepam [Ativan] 0.5 mg tablet 0.5 mg PO Q6H PRN (Reason: Anxiety) RF: 0 red yeast rice 600 mg capsule 2,400 mg PO QDAY RF: 0 vitamin E 200 unit capsule 600 unit PO QDAY RF: 0 omeprazole 40 mg capsule,delayed release(DR/EC) 20 mg PO QDAY RF: 0 Centrum Silver 0.4-300-250 mg-mcg-mcg tablet 1 tab PO DAILY RF: 0 omega-3 fatty acids 1,250 mg capsule 1,250 mg capsule 1,250 mg PO DAILY RF: 0 cholecalciferol (vitamin D3) 1,000 unit capsule 2,000 unit PO DAILY RF: 0 sertraline [Zoloft] 25 mg tablet 25 mg PO DAILY RF: 0 ascorbate calcium (vitamin C) 500 mg tablet 500 mg PO DAILY RF: 0 dicyclomine 20 mg tablet 20 mg PO ONCE RF: 0 losartan 25 mg tablet 25 mg PO DAILY RF: 0 zinc 50 mg tablet 50 mg PO DAILY RF: 0 B-100 Complex 100 mg tablet extended release PO RF: 0 blue emu cream 1 applic topical DAILY RF: 0 joint exl chiro blend PO RF: 0 turmeric 400 mg capsule PO RF: 0 ground flax seed PO RF: 0 Primary Care Provider: Meri Pope Referrals: Meri Pope PA [Primary Care Provider] - Disposition Disposition: Acute Care Hospital [facility]
[2021-08-18] MEDS: Aspirin 81 MG TAB.CHEW 324 MG PO (12:41)
[2021-08-18 12:42] LABS: Absolute Lymphocyte Count 2.06 X10^3/uL (0.83-4.51); Absolute Neutrophil Count 10.1 X10^3/uL (2.0-7.7); Basophil# 0.06 X10^3/uL; Basophil% 0.4 % (0-1); Eosinophil# 0.19 X10^3/uL; Eosinophils% 1.4 % (0-5); Hematocrit 46.3 % (37-47); Lymphocyte # 2.06 X10^3/ul (0.83-4.51); Lymphocyte % 15.1 % (19-41); Mean Corp Hgb Conc 32.4 g/dL (32-36); Mean Corpuscular Hgb 29.9 pg (27.0-32.0); Mean Corpuscular Volume 92.2 fL (81-99); Mean Platelet Vol. 10.8 fl (6.2-12.0); Monocyte# 1.15 X10^3/uL; Monocyte% 8.4 % (0-10); NRBC Flagged by Analyzer 0 % (0-5); Neutrophil # 10.09 X10^3/uL (2.7-7.7); Neutrophil % 74.3 % (47-70); Platelet Count 373 K/mm3 (150-450); RBC Distribution Width CV 13.1 % (11.6-14.6); RBC Distribution Width SD 43.6 fl (35.1-43.9); Red Blood Count 5.02 M/mm3 (4.2-5.4); White Blood Count 13.6 K/mm3 (4.4-11.0)
[2021-08-18 12:59] LABS: Anion Gap 7 (5-15); BUN 18 mg/dL (7-18); Chloride 105 mmol/L (98-107); Creatinine, Serum 0.86 mg/dL (0.55-1.02); EST Glomerular Filtration Rate 68 mL/min (>60); Est Glom Filt Rate - Afr Amer 82 mL/min (>60); Estimated Creatinine Clearance 45.32 ml/min; Glucose 98 mg/dL (74-106); Magnesium 2.3 mg/dL (1.6-2.6); Potassium 3.4 mmol/L (3.5-5.1); Sodium Level 139 mmol/L (136-145); Troponin-I HS 73 pg/mL (3.0-54.0)
--- NOTE | 2021-08-18 14:03 | HP.PCM.HOS_ITS ---
HPI - General General Date of Admission: 08/18/21 HPI Narrative RYAN PHILIP, is a 76 F with history of pulmonary hypertension, MILLICENT on CPAP, mild COPD chronically on 3 L oxygen came to ER for chest pressure in the morning today. She had mild chest discomfort, midsternal location without radiation about 6 AM on 08/18 which lasted for about 2 hours. She denies associated shortness of breath more than her normal, palpitation, dizziness, diaphoresis or syncope. She follows Dr. Thompson for pulmonary hypertension, mild COPD, mild MILLICENT with AHI 6.1 on 12 cm of water CPAP. Patient is lifelong non-smoker. She also had CTA in pulmonary hospital on January 20, 2021 which showed possible focal pleural thickening in the right CP angle. Follow-up PET scan was negative. 2D echo RVSP 64 mmHg. Patient had work-up for secondary causes pulmonary hypertension including autoimmune tests which were unremarkable. VQ scan in January 2021 was unremarkable. D-dimer and BNP were unremarkable as per office visit on Dr. Thompson. In ED, twelve-lead EKG shows mild sinus tachycardia 108 bpm, QTC [address]-T abnormality. Her previous EKG in August 2011 long time ago was similar. First isolated troponin is mildly elevated. [facility] Medical History Coccygodynia GERD (gastroesophageal reflux disease) Hepatic steatosis Hyperlipidemia IBS (irritable bowel syndrome) MILLICENT (obstructive sleep apnea) Osteoporosis Snoring Thickened endometrium Home Medications L.acidophilus-B.lactis-B.longum 15 billion cell capsule 1 cap PO DAILY 05/02/18 [History Last Taken 08/18/21] calcium carbonate 600 mg(1,500 mg)-vitamin D3 800 unit chewable tablet 1 tab PO DAILY tab 05/02/18 [History Last Taken 08/17/21] lorazepam 0.5 mg tablet 0.5 mg PO Q6H PRN tab 05/02/18 [History Last Taken Unknown] peg 400-propylene glycol 0.4 %-0.3 % eye drops 2 drp OPHTHALMIC BID ml 05/02/18 [History Last Taken 08/18/21] cholecalciferol (vitamin D3) 25 mcg (1,000 unit) capsule 2,000 unit PO DAILY cap 07/04/18 [History Last Taken 08/17/21] vdjmkddh-phf-gpumc acid 0.4 mg-lycopene 300 mcg-lutein 250 mcg tablet 1 tab PO DAILY 07/04/18 [History Last Taken 08/17/21] omega-3 fatty acids 1,250 mg capsule 1,250 mg PO DAILY 07/04/18 [History Last Taken 08/17/21] red yeast rice 600 mg capsule 2,400 mg PO QDAY cap 07/04/18 [History Last Taken 08/17/21] sertraline 25 mg tablet 25 mg PO DAILY 07/04/18 [History Last Taken 08/18/21] vitamin E 200 unit capsule 600 unit PO QDAY cap 07/04/18 [History Last Taken 08/17/21] ascorbate calcium (vitamin C) 500 mg tablet 500 mg PO DAILY 03/11/19 [History Last Taken 08/17/21] blue emu cream 1 applic TOPICAL DAILY 08/04/21 [History Last Taken 08/17/21] dicyclomine 20 mg tablet 20 mg PO ONCE tab 08/04/21 [History Last Taken 08/18/21] ground flax seed 1 - 2 tbsp PO DAILY 08/04/21 [History Last Taken 08/17/21] joint exl chiro blend 1 cap PO DAILY 08/04/21 [History Last Taken 08/17/21] losartan 25 mg tablet 25 mg PO DAILY 08/04/21 [History Last Taken 08/18/21] turmeric 400 mg capsule 400 mg PO DAILY 08/04/21 [History Last Taken 08/17/21] zinc 50 mg tablet 50 mg PO DAILY 08/04/21 [History Last Taken 08/17/21] omeprazole 20 mg PO DAILY 08/18/21 [History Last Taken 08/18/21] Allergy/AdvReac Type Severity Reaction Status Date / Time atorvastatin [From Lipitor] Allergy Severe Unknown Verified 08/18/21 12:26 bacitracin Allergy Severe Unknown Verified 08/18/21 12:26 [From Neosporin ([id number])] neomycin Allergy Severe Unknown Verified 08/18/21 12:26 [From Neosporin ([id number])] polymyxin B Allergy Severe Unknown Verified 08/18/21 12:26 [From Neosporin ([id number])] acetaminophen [From Vicodin] Allergy Intermediate Other Verified 08/18/21 12:26 cefdinir Allergy Intermediate Other Verified 08/18/21 12:26 clobetasol Allergy Intermediate Unknown Verified 08/18/21 12:26 escitalopram Allergy Intermediate Constipatio Verified 08/18/21 12:26 n hydrocodone [From Vicodin] Allergy Intermediate Other Verified 08/18/21 12:26 lansoprazole Allergy Intermediate Nausea/Vom/ Verified 08/18/21 12:26 Diarrhea meloxicam Allergy Intermediate Other Verified 08/18/21 12:26 metoclopramide Allergy Intermediate Unknown Verified 08/18/21 12:26 mupirocin Allergy Intermediate Unknown Verified 08/18/21 12:26 naproxen Allergy Intermediate Upset Verified 08/18/21 12:26 Stomach nystatin Allergy Intermediate unknown Verified 08/18/21 12:26 Sulfa (Sulfonamide Allergy Intermediate Unknown Verified 08/18/21 12:26 Antibiotics) topiramate Allergy Intermediate Other Verified 08/18/21 12:26 tramadol Allergy Intermediate Unknown Verified 08/18/21 12:26 trazodone Allergy Intermediate Other Verified 08/18/21 12:26 celecoxib [From Celebrex] Allergy Unknown Verified 08/18/21 12:26 codeine Allergy Unknown Verified 08/18/21 12:26 amoxicillin AdvReac Diarrhea Verified 08/18/21 12:26 Surgical History History of carpal tunnel surgery History of cataract surgery History of cholecystectomy Social History Smoking Status: Never smoker second hand exposure: No alcohol intake: never substance use type: does not use caffeine: Yes what type of physical activity do you participate in: other details: decompression therapy and PT frequency: daily seatbelt use: always do you feel safe at home: Yes additional social history: - [employer] retired Patient is retired ROS ROS Narrative Constitutional: Reports fatigue and weakness HEENT: Reports systems reviewed and no addt'l complaints, except as documented Respiratory/Chest: As described in HPI Gastrointestinal: Mild nausea with chest pressure. Denies coffee ground emesis, hematemesis or vomiting Genitourinary: Denies burning urination or new urinary tract symptoms Musculoskeletal: wears left foot brace. Mild degenerative tendon disease in left foot. Neurologic: Denies seizure-like activity skin: No ulcer. No rash Endocrinology: Reports systems reviewed and no addt'l complaints, except as documented Hematologic/Lymphatic: Reports systems reviewed and no addt'l complaints, except as documented Rest 12 ROS are negative except as mentioned in HPI. Vital Signs Vital Signs Vital Signs: 08/18/21 12:19 08/18/21 12:29 08/18/21 12:37 Temperature 98.9 F Temperature Source Temporal Pulse Rate 110 H Respiratory Rate 18 Respiratory Effort Normal Blood Pressure 150/80 H Blood Pressure Mean 103 Pulse Ox 95 Oxygen Delivery Method Room Air Nasal Cannula Oxygen Flow Rate (L/min) 3 08/18/21 13:18 Temperature Temperature Source Pulse Rate 97 Respiratory Rate Respiratory Effort Blood Pressure 131/71 H Blood Pressure Mean 91 Pulse Ox 99 Oxygen Delivery Method Nasal Cannula Oxygen Flow Rate (L/min) 3 Weight Weight: 148 lb Body Mass Index (BMI) 26.2 Physical Exam Narrative General: Alert, Oriented x3, Cooperative HEENT: Atraumatic, PERRLA, EOMI, Normocephalic Oral: No Gingival or Mucosal Lesions/ Ulcerations Neck: Supple, No JVD, Negative Carotid Bruits Lungs: Air entry diminished in bilateral lung bases. No crepitation/rhonchi Cardiovascular: Sinus tachycardia, Normal S1, Normal S2, No murmurs Abdomen: Bowel Sounds Present, Soft, Non Tender, Non-Distended : No renal angle tenderness. No suprapubic tenderness. Extremities: No edema, Capillary Refill Less than 3 Seconds Skin: No rashes, No breakdown Musculoskeletal: Left foot drop/degenerative tendinopathy in left foot. No Tenderness to Palpation of Joints or Extremities Neurological: Cranial nerves II-XII grossly intact, DTR 2+/4 and Symmetrical, Neuro grossly intact Psych/Mental Status: Normal Affect, Appropriate. Results Lab / Micro Data Result Diagrams: 08/18/21 12:34 08/18/21 12:34 Labs: Laboratory Results - last 24 hr 08/18/21 12:34: WBC 13.6 H, RBC 5.02, Hgb 15.0, Hct 46.3, MCV 92.2, MCH 29.9, MCHC 32.4, RDW Std Deviation 43.6, RDW Coeff of [place]ba 13.1, Plt Count 373, MPV 10.8, Immature Gran % (Auto) 0.400, Neut % (Auto) 74.3 H, Lymph % (Auto) 15.1 L, Davidson % (Auto) 8.4, Eos % (Auto) 1.4, Baso % (Auto) 0.4, Absolute Neuts (auto) 10.1 H, Absolute Lymphs (auto) 2.06, Nucleated RBC % 0 08/18/21 12:34: Sodium 139, Potassium 3.4 L, Chloride 105, Carbon Dioxide 27.0, Anion Gap 7, BUN 18, Creatinine 0.86, Estim Creat Clear Calc 45.32, Est GFR (MDRD) Af Amer 82, Est GFR (MDRD) Non-Af 68, BUN/Creatinine Ratio 21.0 H, Glucose 98, Calcium 9.0, Magnesium 2.3, Troponin I High Sens 73 H Radiology Impression Chest X-Ray 08/18/21 12:34 IMPRESSION: Hyperinflation. 1.3 cm nodular density in the lateral aspect of the right lower lobe adjacent to the right costophrenic angle. Electronically Signed: Deon Stafford MD at 13:25 EST , Service support , Assessment & Plan Assessment/Plan (1) Chest pain: QUALIFIERS: Chest pain type: unspecified Qualified Code(s): R07.9 - Chest pain, unspecified (2) Pulmonary hypertension: PLAN: 1. Atypical chest pain with mildly elevated troponin: Patient is being admitted PCU. Cycle hs-tropnins. Patient denies prior history of coronary artery disease. Patient further said she had stress test and echo in pulmonary in hospital in December 2020. We will try to obtain records from there. Fasting profile and TSH tomorrow. 2. Pulmonary conditions: Mild COPD, mild MILLICENT on CPAP, pulmonary hypertension with chronic hypoxic respiratory failure: She follows Dr. Thompson. She had PFT, sleep study and work-up for pulmonary hypertension. She also had CTA in pulmonary hospital on January 20, 2021 which showed possible focal pleural thickening in the right CP angle. Follow-up PET scan was negative. 2D echo RVSP 64 mmHg. Patient had work-up for secondary causes pulmonary hypertension including autoimmune tests which were unremarkable. VQ scan in January 2021 was unremarkable. D-dimer and BNP were unremarkable as per office visit on Dr. Thompson. Patient has been referred to [facility] for right-sided cardiac cath which patient and her said they did not receive the request for right heart ca th yet but pulmonary clinic she says the same date. I left a voice message to Dr. Thompson. 3. Multiple other conditions GERD, IBS, dyslipidemia, osteoporosis and history of multiple allergies: Home medication reconciliation done Living will/advanced directive/end of life care: Patient does have living will or advanced directive. After discussion of benefits/risks procedures involved with full code, DNR CC arrest and DNR CC, the patient they are okay with CPR but do not want intubation or ventilation. She is okay with other maneuvers. Full code except ventilator Patient does want artificial life support including tube feed, chest compression, central venous catheter, vasopressor and DC shock if needed Total time spent in [id number] encounter in discussion of advanced directive 16 minutes. Charges/Coding Visit Charges OBSV E&M: 39975 Observ/hosp same date L3 Procedures Hospitalists Procedures: 20157 Advncd Care Plan 30 Min
--- NOTE | 2021-08-18 14:47 | EKG12_ITS ---
Test Reason : CP Blood Pressure : / mmHG Vent. Rate : 082 BPM Atrial Rate : 082 BPM P-R Int : 146 ms QRS Dur : 066 ms QT Int : 390 ms P-R-T Axes : 078 076 072 degrees QTc Int : 455 ms Normal sinus rhythm Normal ECG No previous ECGs available Confirmed by SHELBY LAGUNA, BUSHRA ([id number]), metropolitan editor JACKSON POTTS ([id number]) on 08/19/2021 2:17:21 P M Referred By: CARIDAD Confirmed By:GAVIN RYAN MD
[2021-08-18] MEDS: Potassium Chloride Oral Tablet 20 MEQ 40 MEQ PO (15:41)
[2021-08-18] MEDS: Enoxaparin 40 MG/0.4 ML Syringe SC (15:41)
[2021-08-18 17:06] LABS: Troponin-I HS 65 pg/mL (3.0-54.0)
[2021-08-18 19:04] LABS: Troponin-I HS 69 pg/mL (3.0-54.0)
--- NOTE | 2021-08-18 21:17 | PCS.PANDOC ---
PANDEMIC DOCUMENTATION INITIATED: Date: 05/16/2021 Time: 190
[2021-08-19 00:12] VITALS: PULSE 86
[2021-08-19 03:00] VITALS: BP 111/69; PULSE 79; PULSE 80; RESP 16; TEMP 36.9; O2SAT 97
--- NOTE | 2021-08-19 05:55 | EKG12_ITS ---
Test Reason : AM EKG Blood Pressure : / mmHG Vent. Rate : 084 BPM Atrial Rate : 084 BPM P-R Int : 138 ms QRS Dur : 072 ms QT Int : 390 ms P-R-T Axes : 077 069 059 degrees QTc Int : 460 ms Normal sinus rhythm Normal ECG When compared with ECG of 18-AUG-2021 14:57, MANUAL COMPARISON REQUIRED, DATA IS UNCONFIRMED Confirmed by SHELBY LAGUNA, BUSHRA ([id number]), tape editor JACKSON POTTS ([id number]) on 08/19/2021 2:14:53 P M Referred By: DR BILL Confirmed By:GAVIN RYAN MD
[2021-08-19 06:47] LABS: Absolute Lymphocyte Count 2.07 X10^3/uL (0.83-4.51); Absolute Neutrophil Count 6.6 X10^3/uL (2.0-7.7); Basophil# 0.06 X10^3/uL; Basophil% 0.6 % (0-1); Eosinophil# 0.25 X10^3/uL; Eosinophils% 2.5 % (0-5); Hematocrit 42.5 % (37-47); Hemoglobin 13.6 g/dL (12.0-15.0); Lymphocyte # 2.07 X10^3/ul (0.83-4.51); Lymphocyte % 20.9 % (19-41); Mean Corpuscular Hgb 29.4 pg (27.0-32.0); Mean Platelet Vol. 11.2 fl (6.2-12.0); Monocyte# 0.89 X10^3/uL; NRBC Flagged by Analyzer 0 % (0-5); Neutrophil # 6.57 X10^3/uL (2.7-7.7); Neutrophil % 66.4 % (47-70); Platelet Count 317 K/mm3 (150-450); RBC Distribution Width CV 12.9 % (11.6-14.6); RBC Distribution Width SD 42.9 fl (35.1-43.9); Red Blood Count 4.62 M/mm3 (4.2-5.4); White Blood Count 9.9 K/mm3 (4.4-11.0)
[2021-08-19 07:24] LABS: Anion Gap 4 (5-15); BUN 20 mg/dL (7-18); BUN/Creat Ratio 28.4 RATIO (10-20); Calcium,Total 8.6 mg/dL (8.5-10.1); Chloride 110 mmol/L (98-107); Cholesterol 154 mg/dL (200); EST Glomerular Filtration Rate 86 mL/min (>60); Est Glom Filt Rate - Afr Amer 103 mL/min (>60); Estimated Creatinine Clearance 37.26 ml/min; Glucose 96 mg/dL (74-106); High Density Lipoprotein 43 mg/dL; Potassium 4.3 mmol/L (3.5-5.1); Sodium Level 138 mmol/L (136-145); Thyroid Stim Hormone (TSH) 1.66 uIU/mL (0.358-3.74); Triglycerides 157 mg/dL; Very Low Density Lipoprotein 31 mg/dL (5-40)
[2021-08-19 07:34] VITALS: PULSE 108
[2021-08-19 10:10] VITALS: BP 126/72; PULSE 92; RESP 18; TEMP 36; O2SAT 98
[2021-08-19 10:19] VITALS: O2SAT 97
[2021-08-19] MEDS: Multivitamins,Ther W-Minerals Tablet 1 TABLET PO (10:25)
[2021-08-19] MEDS: Losartan Potassium 25 MG Tablet PO (10:25)
[2021-08-19] MEDS: Cholecalciferol (VIT D3) 25 MCG TABLET (1,000 UNITS) PO (10:25)
[2021-08-19] MEDS: Ascorbic Acid 500 MG Tablet PO (10:25)
[2021-08-19] MEDS: Sertraline 50 MG Tablet 25 MG PO (10:25)
[2021-08-19] MEDS: Calcium Carb/Vitamin D 1 TABLET Tablet PO (10:25)
[2021-08-19] MEDS: Pantoprazole Sodium 20 MG Tablet PO (10:26)
--- NOTE | 2021-08-19 11:33 | STRESSREP ---
Stress Test Report Date: 08/19/2021 Procedure: Pharmacologic stress nuclear imaging study Indications: Chest pain Consent: Per the patient Procedure: The patient underwent pharmacologic (Regadenoson) evaluation with a peak heart rate of 121 beats per minute (84%predicted maximal heart rate) and a peak blood pressure of 138/84 mmHg. The baseline ECG demonstrated normal sinus rhythm. EKG during lexiscan infusion revealed no significant ischemic changes. EKG post infusion revealed no significant ischemic changes [There were no cardiac dysrhythmias pretest, during pharmacologic infusion, or recovery]. [There was no complaint of chest discomfort during pharmacologic infusion or recovery]. The examination was discontinued secondary to completion of protocol. Impression: 1. Lexiscan stress test test is negative for Lexiscan infusion induced EKG changes of ischemia. 2. Lexiscan stress test test is negative for Lexiscan infusion induced chest pain. 3. Results of the nuclear portion of the test is as below Myocardial perfusion imaging study: Technique: The patient was injected with [] millicuries of technetium 99m Cardiolite and subsequently rest SPECT Cardiolite nuclear imaging was obtained in the horizontal long, vertical long, and short axis views. The patient underwent pharmacologic [Regadenoson 0.4mg] evaluation. Please see above for details. The patient was injected with [] millicuries of technetium 99m Cardiolite and subsequently stress SPECT Cardiolite nuclear imaging was obtained in the horizontal long, vertical long, and short axis views. A gated Cardiolite study at peak stress was obtained. Interpretation: Rest and stress SPECT Cardiolite nuclear imaging status post realignment, normalization, and attenuation correction demonstrate normal overall myocardial radioisotope uptake. Gated images reveal no significant regional wall motion abnormalities. The reported LVEF is greater than 70%. Impression: 1. There is no evidence of significant ischemia or infarction. 2. Estimated ejection fraction is greater than 70%. This note was generated with [employer] software. It may contain incorrect words, spelling, and punctuation that were not noted in checking the note before signing.
[2021-08-19 11:44] VITALS: O2SAT 96
--- NOTE | 2021-08-19 12:23 | PCM.DC ---
Discharge Instructions Diet Discharge Diet: No restrictions Activity Discharge Activity: Return to Normal Activity Weight Bearing Status: Full weight bearing Follow Up Care Test Results: Test results from this visit will be discussed in further detail at your follow-up appointment, if applicable. Discharge Plan Admission Admit Date/Time: 08/18/21 13:54 Primary Reason for Your Visit: chest pain Attending Provider: Tyron Guthrie Primary Care Provider: Meri Pope Discharge Orders/Prescriptions Prescriptions: Continued peg 400-propylene glycol [Systane (propylene glycol)] 0.4-0.3 % drops 2 drp OPHTHALMIC BID RF: 0 calcium carbonate 600 mg(1,500 mg)-vitamin D3 800 unit chewable tablet 600 mg (1,500 mg)-800 unit tablet,chewable 1 tab PO DAILY RF: 0 L.acidoph-B.lactis-B.longum [Florajen3] 460 mg (7.5-6- 1.5 bill. cell) capsule 1 cap PO DAILY RF: 0 lorazepam [Ativan] 0.5 mg tablet 0.5 mg PO Q6H PRN (Reason: Anxiety) RF: 0 red yeast rice 600 mg capsule 2,400 mg PO QDAY RF: 0 vitamin E 200 unit capsule 600 unit PO QDAY RF: 0 Centrum Silver 0.4-300-250 mg-mcg-mcg tablet 1 tab PO DAILY RF: 0 omega-3 fatty acids 1,250 mg capsule 1,250 mg capsule 1,250 mg PO DAILY RF: 0 cholecalciferol (vitamin D3) 1,000 unit capsule 2,000 unit PO DAILY RF: 0 sertraline [Zoloft] 25 mg tablet 25 mg PO DAILY RF: 0 ascorbate calcium (vitamin C) 500 mg tablet 500 mg PO DAILY RF: 0 dicyclomine 20 mg tablet 20 mg PO ONCE RF: 0 losartan 25 mg tablet 25 mg PO DAILY RF: 0 zinc 50 mg tablet 50 mg PO DAILY RF: 0 blue emu cream 1 applic topical DAILY RF: 0 joint exl chiro blend 1 cap PO DAILY RF: 0 turmeric 400 mg capsule 400 mg PO DAILY RF: 0 ground flax seed 1 - 2 tbsp PO DAILY RF: 0 omeprazole 20 mg capsule,delayed release(DR/EC) 20 mg PO DAILY RF: 0 Referrals / Follow Up: Meri Pope PA [Primary Care Provider] - Within 2 Weeks Disposition Disposition (needs filled in before D/C Order can be placed): Home, Self Care
--- NOTE | 2021-08-19 15:32 | PCM.DC.SUM ---
Providers Date of Admission: 08/18/21 Date of Discharge: 08/19/21 Primary Care Physician: NATHALIE Weathers Reason For Visit: ATYPICAL CHEST PRESSURE Diagnosis Discharge Diagnosis (1) Chest pain: Status: Acute Code(s): R07.9 - Chest pain, unspecified Qualifiers: Chest pain type: unspecified Qualified Code(s): R07.9 - Chest pain, unspecified (2) Pulmonary hypertension: Status: Acute Code(s): I27.20 - Pulmonary hypertension, unspecified Plan: 1. Musculoskeletal chest pain #2 chronic hypoxic respiratory failure #3 pulmonary hypertension #4 obstructive sleep apnea Medications at Discharge Home Medications L.acidophilus-B.lactis-B.longum 15 billion cell capsule 1 cap PO DAILY 05/02/18 calcium carbonate 600 mg(1,500 mg)-vitamin D3 800 unit chewable tablet 1 tab PO DAILY tab 05/02/18 lorazepam 0.5 mg tablet 0.5 mg PO Q6H PRN tab 05/02/18 peg 400-propylene glycol 0.4 %-0.3 % eye drops 2 drp OPHTHALMIC BID ml 05/02/18 cholecalciferol (vitamin D3) 25 mcg (1,000 unit) capsule 2,000 unit PO DAILY cap 07/04/18 fwacsikq-rxg-tfxue acid 0.4 mg-lycopene 300 mcg-lutein 250 mcg tablet 1 tab PO DAILY 07/04/18 omega-3 fatty acids 1,250 mg capsule 1,250 mg PO DAILY 07/04/18 red yeast rice 600 mg capsule 2,400 mg PO QDAY cap 07/04/18 sertraline 25 mg tablet 25 mg PO DAILY 07/04/18 vitamin E 200 unit capsule 600 unit PO QDAY cap 07/04/18 ascorbate calcium (vitamin C) 500 mg tablet 500 mg PO DAILY 03/11/19 blue emu cream 1 applic TOPICAL DAILY 08/04/21 dicyclomine 20 mg tablet 20 mg PO ONCE tab 08/04/21 ground flax seed 1 - 2 tbsp PO DAILY 08/04/21 joint exl chiro blend 1 cap PO DAILY 08/04/21 losartan 25 mg tablet 25 mg PO DAILY 08/04/21 turmeric 400 mg capsule 400 mg PO DAILY 08/04/21 zinc 50 mg tablet 50 mg PO DAILY 08/04/21 omeprazole 20 mg PO DAILY 08/18/21 Hospital Course Operations None Procedures Stress test Summary of Care Provided Minutes Spent on Discharge: 30 Hospital Course: The patient is a 76-year-old white female who came to the emergency room at [facility] with complaints of chest pressure. Work-up in the emergency room included an EKG which did not show an acute injury pattern, patient's cardiac enzymes were normal, patient had chest x-ray which showed a 1.3 cm nodular density in the lateral aspect of the right lower lobe. Patient was placed in observation status on PCU, cardiac enzymes were cycled and these remain normal. Patient underwent a pharmacological resting stress test that showed no evidence for reversible ischemia. On 08/19/2021, patient was seen and examined: On examination she appeared in good health and spirits, she does not appear to be in any distress. Vital signs as documented. Skin warm and dry and without overt rashes. Neck without JVD, thyroid appears normal, trachea is midline, neck is supple. Lungs clear, normal air movement was noted. Heart exam notable for regular rhythm, normal sounds and absence of murmurs, rubs or gallops. Abdomen unremarkable and without evidence of organomegaly, masses, or abdominal aortic enlargement, bowel sounds are present in all 4 quadrants, no abdominal tenderness was noted. Extremities nonedematous, no cyanosis was noted, no clubbing was noted. Neuro: Cranial nerves II through XII are grossly intact, no focal motor deficits were noted, sensation to light touch and pinprick is intact, motor exam 5/5 throughout. Psych: Patient is alert and oriented x3, she does not appear anxious or depressed, she does not appear agitated. Patient was discharged home in stable condition on 08/19/2021. Further note: It appears from the patient's medical record that the patient's pulmonary nodule is being worked up, she sees Dr. Thompson as an outpatient and she has had an outpatient PET scan. Patient is due to be seen at [facility] for a right heart catheterization. Weight / BMI Weight Weight: 66.7 kg Body Mass Index (BMI) 26.0 ABG / Lab / Microbiology Data Result Diagrams: 08/19/21 05:59 08/19/21 05:59 Microbiology: Microbiology 08/18/21 13:40 Nasal Secretion SARS-CoV-2 Antigen (Rapid) - Final D/C Instructions Discharge Diet: No restrictions Weight Bearing Status: Full weight bearing Meaningful Use Info Meaningful Use Diagnoses (Choose all that apply): None applicable Discharge Plan Admission Admit Date/Time: 08/18/21 13:54 Primary Reason for Your Visit: chest pain Attending Provider: Tyron Guthrie Primary Care Provider: Meri Pope Discharge Orders/Prescriptions Prescriptions: Continued peg 400-propylene glycol [Systane (propylene glycol)] 0.4-0.3 % drops 2 drp OPHTHALMIC BID RF: 0 calcium carbonate 600 mg(1,500 mg)-vitamin D3 800 unit chewable tablet 600 mg (1,500 mg)-800 unit tablet,chewable 1 tab PO DAILY RF: 0 L.acidoph-B.lactis-B.longum [Florajen3] 460 mg (7.5-6- 1.5 bill. cell) capsule 1 cap PO DAILY RF: 0 lorazepam [Ativan] 0.5 mg tablet 0.5 mg PO Q6H PRN (Reason: Anxiety) RF: 0 red yeast rice 600 mg capsule 2,400 mg PO QDAY RF: 0 vitamin E 200 unit capsule 600 unit PO QDAY RF: 0 Centrum Silver 0.4-300-250 mg-mcg-mcg tablet 1 tab PO DAILY RF: 0 omega-3 fatty acids 1,250 mg capsule 1,250 mg capsule 1,250 mg PO DAILY RF: 0 cholecalciferol (vitamin D3) 1,000 unit capsule 2,000 unit PO DAILY RF: 0 sertraline [Zoloft] 25 mg tablet 25 mg PO DAILY RF: 0 ascorbate calcium (vitamin C) 500 mg tablet 500 mg PO DAILY RF: 0 dicyclomine 20 mg tablet 20 mg PO ONCE RF: 0 losartan 25 mg tablet 25 mg PO DAILY RF: 0 zinc 50 mg tablet 50 mg PO DAILY RF: 0 blue emu cream 1 applic topical DAILY RF: 0 joint exl chiro blend 1 cap PO DAILY RF: 0 turmeric 400 mg capsule 400 mg PO DAILY RF: 0 ground flax seed 1 - 2 tbsp PO DAILY RF: 0 omeprazole 20 mg capsule,delayed release(DR/EC) 20 mg PO DAILY RF: 0 Referrals / Follow Up: Meri Pope PA [Primary Care Provider] - Within 2 Weeks Disposition Disposition (needs filled in before D/C Order can be placed): Home, Self Care Charges/Coding Visit Charges OBSV E&M: 60084 Observation care discharge
== END 2021-08-19 12:24 | disposition home or self-care (01) ==
LOC: ED 13:37 → PCU 14:15
PROVIDERS: Admitting Provider Internal Medicine; Emergency Provider Emergency Medicine; PCP Physician Assistant; Visit Provider Internal Medicine
DX: R07.89 Other chest pain (principal); I27.20 Pulmonary hypertension, unspecified; K21.9 Gastro-esophageal reflux disease without esophagitis; E78.5 Hyperlipidemia, unspecified; I10 Essential (primary) hypertension; J44.9 Chronic obstructive pulmonary disease, unspecified; G47.33 Obstructive sleep apnea (adult) (pediatric); K58.9 Irritable bowel syndrome, unspecified; Z79.899 Other long term (current) drug therapy; Z99.81 Dependence on supplemental oxygen
CPT/HCPCS: 36415; 71045; 78452; 80048; 80061; 83735; 84443; 84484; 85025; 87426; 93005; 93017; 96372; 99218; 99251; 99285; A9500; A4216; G0378; G0463; J2785